=== PATIENT | male | born 1955 | race Caucasian/White ===

== ENCOUNTER 2019-03-05 15:02 | Observation (INO) ==
[2019-03-05 15:35] LABS: BASO# 0.03 X1000 (0.0-0.2); BASO% 0.4 % (0.0-0.8); EOS# 0.05 X1000 (0.0-0.7); EOS% 0.7 % (0.0-10.0); HEMATOCRIT 39.4 % (42.0-52.0); HEMOGLOBIN 13.5 g/dL (14.0-18.0); IMM GRAN# 0.15 X1000 (0.0-0.04); IMM GRAN% 2.2 % (0.0-0.5); LYMPH# 1.24 X1000 (1.2-3.4); LYMPH% 18.5 % (20.5-51.1); MCH 26.7 PG (27-31); MCHC 34.3 g/dL (33-37); MCV 77.9 FL (81-99); MONO# 1.01 X1000 (0.11-0.59); MONO% 15.1 % (1.7-9.3); MPV 9.3 FL (7.4-10.4); NEUT# 4.23 X1000 (1.4-6.5); NEUT% 63.1 % (42.2-75.2); PLT 230 X1000 (130-400); RBC 5.06 XMIL (4.7-6.1); RDW 19.2 % (11.5-14.5); WBC 6.71 X1000 (4.8-10.8)
--- NOTE | 2019-03-05 15:54 | Diag Imaging Result Doc PS360 ---
EXAM: CHEST-PORTABLE HISTORY: PALPITATIONS TECHNIQUE: Chest single view COMPARISON: None. FINDINGS: The lungs are well expanded. The heart is not enlarged. The vessels are not distended. There are no infiltrates. No effusion identified. IMPRESSION: Negative exam. Electronically signed by Navid Madsen 03/05/2019 3:52 PM
[2019-03-05 16:23] LABS: AGAP 13; ALBUMIN 5.2 g/dL (3.5-5.0); ALKALINE PHOSPHATASE 52 U/L (32-122); BUN 14 mg/dL (8-22); CALCIUM 9.9 mg/dL (8.8-10.2); CHLORIDE 100 mmol/L (98-107); COSMO 275; CREATININE 0.6 mg/dL (0.7-1.2); ESTIMATED GFR > 60; GLUCOSE 147 mg/dL (70-104); GOT 34 U/L (10-34); GPT 33 U/L (10-44); INR 1.07; MAGNESIUM 1.9 mg/dL (1.5-2.7); POTASSIUM 3.7 mmol/L (3.5-5.1); PROTIME 14.4 Seconds (11.0-16.0); SODIUM 136 mmol/L (136-145); TCO2 23 mmol/L (25-35); TOTAL PROTEIN 7.6 g/dL (6.3-8.3)
[2019-03-05 16:45] LABS: CK INDEX 2.2 (0.0-2.5); CK-MB 9.95 ng/mL (0.0-5.0)
--- NOTE | 2019-03-05 17:40 | EKG Report ---
Test Performed on : 03/05/2019 3:17:31 PM Test Reason : PALPITATIONS Blood Pressure : / mmHG Vent. Rate : 083 BPM Atrial Rate : 083 BPM P-R Int : 148 ms QRS Dur : 086 ms QT Int : 372 ms P-R-T Axes : 055 015 053 degrees QTc Int : 437 ms Sinus rhythm. with premature supraventricular complexes. Otherwise normal ECG No previous ECGs available Unconfirmed Result
--- NOTE | 2019-03-05 17:42 | PROVIDER DOCUMENTATION ---
This chart was entered by Estelle Riojas Scribe, acting as scribe for Artem Carr MD. HPI-Cardiac General - General Chief Complaint: Palpitations Stated Complaint: IRREG HR Time Seen by Provider: 03/05/19 15:42 Source: patient Allergies/Adverse Reactions: Patient Allergies Allergy/AdvReac Type Severity Reaction Status Date / Time ANTIBIOTICS AdvReac Mild Unknown Uncoded 03/05/19 15:09 - History of Present Illness-Cardiac Nature of Presenting Problem: 63 y/o female presents to ED with worsening palpitations, fatigue, and L arm/fac ial numbness onset 2 weeks ago. Pt reports he had a normal stress test 1.5 years ago. Pt is alert and oriented. Location: reports: central Quality of Pain: reports: none Severity in ED: moderate Onset/Duration: other (2 weeks ago) Timing: still present, getting worse Context/Activities at Onset: reports: none Modifying Factors: improves with: nothing Palpitation Quality: fast/pounding heart beat History of arrythmia: reports: none Recent use of:: reports: no stimulants Nitro Today/Relief: reports: no nitro taken today Aspirin Treatment Today: reports: no aspirin today Prior Chest Pain/Cardiac Workup: reports: stress test Associated Symptoms: reports: fatigue Similar Symptoms Previously?: Yes Recently Seen Here or By Another Healthcare Provider: No Review of Systems - Adult - REVIEW OF SYSTEMS - ADULT Constitutional: reports: fatique. denies: chills, fever Eyes: reports: no symptoms reported Ears, Nose, Mouth & Throat: reports: no symptoms reported Cardiovascular: reports: palpitations. denies: chest pain Respiratory: denies: cough, shortness of breath Gastrointestinal: denies: abdominal pain, diarrhea, nausea, vomiting Genitourinary: reports: no symptoms reported Musculoskeletal: denies: back pain, joint pain Integumentary: reports: no symptoms reported Neurological: reports: numbness (L arm/facial). denies: dizziness/vertigo, seizure Psychiatric: reports: no symptoms reported Endocrine: reports: no symptoms reported Hematologic/Lymphatic: reports: no symptoms reported Allergic/Immunologic: reports: no symptoms reported All Other Systems: Reviewed and Negative Past History - Adult - PAST MEDICAL HISTORY-ADULT Review of Records: reports: Old Records Reviewed, Nursing Assessment Review, Medications Reviewed Major Childhood Illnesses: reports: denies history Cardiovascular: reports: HTN, hyperlipidemia Endocrine/Immune: reports: thyroid disorder - PRIOR SURGERIES/PROCEDURES Surgical/Procedure History: reports: other (sinus) - IMMUNIZATION STATUS Childhood Immunizations: See Nurse Assessment Flu Vaccine: See Nurse Assessment - FAMILY HISTORY Family History: reviewed, not pertinent - SOCIAL HISTORY Smoking: non-smoker Substance Use: none/never Alcohol Use Frequency: never Living Situation: family Physical Exam-General - PHYSICAL EXAM-ADULT Initial Vital Signs Reviewed: Yes - CONSTITUTIONAL General Appearance: appears well, alert, no apparent distress - EYES Eyes: pink conjunctivae - HEAD, EARS, NOSE, MOUTH & THROAT HENMT: normocephalic/atraumatic, moist mucous membranes, normal ENT inspection - NECK Neck: non-tender, full range of motion - RESPIRATORY Respiratory: chest non-tender, lungs clear, normal breath sounds - CARDIOVASCULAR Cardiovascular: normal peripheral pulses, regular rate, rhythm - GASTROINTESTINAL (ABDOMEN) Abdominal Exam: normal bowel sounds, non tender, soft - MUSCULOSKELETAL Back Exam: normal inspection, no CVA tenderness, no vertebral tenderness Extremity: normal range of motion, non-tender, normal gait - SKIN Integumentary: normal color, warm/dry - NEUROLOGIC Neurologic: grossly normal - PSYCHIATRIC Psych/Mental Status: normal mood/affect, normal thought content, normal thought process, oriented x 3 - HEART Score HEART Score: History: Slightly Suspicious HEART Score: ECG: Normal HEART Score: Age: > or = 65 Years HEART Score: Risk Factors for Atherosclerotic Disease: 1 or 2 Risk Factors HEART Score: Troponin: < or = Normal Limit Total HEART Score:: 3 Progress - PLAN OF CARE/RESULTS Progress/Plan/Lab Results: Vital Signs - 8 hr 03/05/19 15:05 03/05/19 15:32 Temperature 98 F Pulse Rate 88 81 Respiratory Rate 19 19 Blood Pressure 159/72 137/87 O2 Sat by Pulse Oximetry 97 97 Laboratory Results - last 24 hr 03/05/19 03/05/19 03/05/19 15:23 15:23 15:23 WBC 6.71 RBC 5.06 Hgb 13.5 L Hct 39.4 L MCV 77.9 L MCH 26.7 L MCHC 34.3 RDW Std Deviation 19.2 H Plt Count 230 MPV 9.3 Immature Gran % (Auto) 2.2 H Neut % (Auto) 63.1 Lymph % (Auto) 18.5 L Baker % (Auto) 15.1 H Eos % (Auto) 0.7 Baso % (Auto) 0.4 Immature Gran # (Auto) 0.15 H Neut # (Auto) 4.23 Lymph # (Auto) 1.24 Baker # (Auto) 1.01 H Eos # (Auto) 0.05 Baso # (Auto) 0.03 PT INR D-Dimer, Quantitative Sodium Potassium Chloride Carbon Dioxide Anion Gap BUN Creatinine Estimated GFR/1.73 m2 BUN/Creatinine Ratio Glucose Calculated Osmolality Calcium Magnesium Total Bilirubin AST ALT Alkaline Phosphatase Creatine Kinase 462 H Creatine Kinase Index 2.2 CK-MB (CK-2) 9.95 H Troponin T < 0.010 Wyr-W-Wzjxzckrlqa Pept Total Protein Albumin Globulin Albumin/Globulin Ratio 03/05/19 03/05/19 03/05/19 15:23 15:23 15:23 WBC RBC Hgb Hct MCV MCH MCHC RDW Std Deviation Plt Count MPV Immature Gran % (Auto) Neut % (Auto) Lymph % (Auto) Baker % (Auto) Eos % (Auto) Baso % (Auto) Immature Gran # (Auto) Neut # (Auto) Lymph # (Auto) Baker # (Auto) Eos # (Auto) Baso # (Auto) PT INR D-Dimer, Quantitative < 0.27 Sodium 136 Potassium 3.7 Chloride 100 Carbon Dioxide 23 L Anion Gap 13 BUN 14 Creatinine 0.6 L Estimated GFR/1.73 m2 > 60 BUN/Creatinine Ratio 23 Glucose 147 H Calculated Osmolality 275 Calcium 9.9 Magnesium 1.9 Total Bilirubin 0.60 AST 34 ALT 33 Alkaline Phosphatase 52 Creatine Kinase Creatine Kinase Index CK-MB (CK-2) Troponin T Mmt-B-Ninphnxvdvh Pept 31 Total Protein 7.6 Albumin 5.2 H Globulin 2.0 Albumin/Globulin Ratio 2.0 03/05/19 15:23 WBC RBC Hgb Hct MCV MCH MCHC RDW Std Deviation Plt Count MPV Immature Gran % (Auto) Neut % (Auto) Lymph % (Auto) Baker % (Auto) Eos % (Auto) Baso % (Auto) Immature Gran # (Auto) Neut # (Auto) Lymph # (Auto) Baker # (Auto) Eos # (Auto) Baso # (Auto) PT 14.4 INR 1.07 D-Dimer, Quantitative Sodium Potassium Chloride Carbon Dioxide Anion Gap BUN Creatinine Estimated GFR/1.73 m2 BUN/Creatinine Ratio Glucose Calculated Osmolality Calcium Magnesium Total Bilirubin AST ALT Alkaline Phosphatase Creatine Kinase Creatine Kinase Index CK-MB (CK-2) Troponin T Fkl-R-Hoswavdydrp Pept Total Protein Albumin Globulin Albumin/Globulin Ratio Orders Category Date Time Status Nursing- Obtain EKG ONCE Care 03/05/19 15:13 Active CHEST-PORTABLE [RAD] Stat Exams 03/05/19 15:13 Completed CBC WITH DIFF [HEME] Stat Lab 03/05/19 15:23 Completed CK PROFILE [SP CHEM] Stat Lab 03/05/19 15:23 Completed COMPREHENSIVE METABOLIC PANEL [CHEM] Stat Lab 03/05/19 15:23 Completed D-DIMER [COAG] Stat Lab 03/05/19 15:23 Completed FREE T4 Stat Lab 03/05/19 15:23 Received MAGNESIUM [CHEM] Stat Lab 03/05/19 15:23 Completed PRO B-NATRIURETIC PEPTIDE Stat Lab 03/05/19 15:23 Completed PROTIME WITH INR [COAG] Stat Lab 03/05/19 15:23 Completed TROPONIN T Stat Lab 03/05/19 15:23 Completed TSH Stat Lab 03/05/19 15:23 Received EKG [EKG] Stat Ther 03/05/19 15:13 Draft Result Diagrams: 03/05/19 15:23 03/05/19 15:23 - EKG 1 Time of EKG reading by physician:: 15:17 EKG Read and Signed by:: Artem Carr EKG Interpretation (*Must complete 3 of following elements*): Normal Rate: 83 Rhythm: Sinus w/ premature supraventricular complexes [place]: normal QRS: normal [place] Interval: normal ST Wave: normal - XRAY 1 XRAY Study: Chest Impression: Normal ([facility] [address], [address], [place] [address] Department of Imaging Patient: NICK FALL Date: 03/05/19#: [id number] : 1955DM Status: REG ERAt#: [id number] Age/Sex: 63/MRoom/Bed: Loc: P.ED Ordering Physician: Artem Carr MD Family Physician: Maddie Grier MD Reason for Procedure: PALPITATIONS Signed EXAM: CHEST-PORTABLE HISTORY: PALPITATIONS TECHNIQUE: Chest single view COMPARISON: None. FINDINGS: The lungs are well expanded. The heart is not enlarged. The vessels are not distended. There are no infiltrates. No effusion identified. IMPRESSION: Negative exam. Electronically signed by Navid Madsen 03/05/2019 3:52 PM 03/05/19 1552 Interpreting Physician: Navid Madsen MD Dictated Date/Time: 03/05/19 1551 cc: Artem Carr MD; Maddie Grier MD) - CONSULTS/PCP/HOSPITALIST Notification #1 *Consult/PCP/Hospitalist*: Dr. Mars Time Discussed: 17:37 Reason/Comments: Palpitations; numbness Consult Disposition: Will see in ED, Admit Departure - Departure Date of Disposition Decision: 03/05/19 Time of Disposition Decision: 17:38 DIAGNOSIS: Atypical chest pain, Palpitations Disposition: ADMITTED INPATIENT 09 Certified Medical Emergency: Emergent Condition: Stable Referrals and Follow-Ups: Maddie Grier MD [Primary Care Provider] - - Critical Care Note This patient required my direct & personal management of CC.: No Attestation - Physician/ CHRISSY Attestation Patient care was provided by Advanced Practice Provider:: No The physician spent face to face time with patient:: Yes Advanced Practice Provider documentation review:: Supervising physician onsite and consulted in the evaluation and care of this patient. The physician did have a face to face encounter with the patient. This chart was documented by the indicated scribe, (Estelle Riojas, [employer]) and accurately reflects the services I performed and decisions made by me, Artem Espino MD, as attested by the provider's signature.
[2019-03-05 17:43] LABS: FREE T4 1.16 ng/dL (0.93-1.70); TSH 2.69 uIUmL (0.27-4.20)
--- NOTE | 2019-03-05 18:58 | Diag Imaging Result Doc PS360 ---
EXAM: CT HEAD W/O CONTRAST 03/05/2019 HISTORY: L arm/face numbness TECHNIQUE: This exam was performed using automated exposure control, adjustment of mA or kV according to patient size, and/or use of iterative reconstruction technique. COMMENT: There are calcifications in the globus pallidus bilaterally. There is no evidence of mass effect, bleed, or abnormal extra-axial fluid collection. The calvarium is intact. The visualized paranasal sinuses are clear. IMPRESSION: No evidence of acute intracranial disease. Electronically signed by Cortez Padron 03/05/2019 6:55 PM
--- NOTE | 2019-03-05 19:37 | HISTORY AND PHYSICAL ---
CHIEF COMPLAINT: Palpitations and left arm and face numbness. HISTORY OF PRESENT ILLNESS: This is a 63-year-old male who presented to the emergency room complaining with palpitations, fatigue, left arm and facial numbness that had been present for 2 weeks. During this time, symptoms have waxed and waned, although prior to coming to the emergency room today they increased. He became concerned, prompting his evaluation. He does report having a stress test a year and a half ago. He stated that it was normal. He denies any chest pain, any syncope or dizziness with these symptoms. No fevers or chills. No shortness of breath. PAST MEDICAL HISTORY: Hypertension, hyperlipidemia. PAST SURGICAL HISTORY: Sinus surgery. SOCIAL HISTORY: Denies alcohol, tobacco or illicit drug use. ALLERGIES: Antibiotics, with unknown reaction. HOME MEDICATIONS: A list will be obtained by the nursing staff and once verified, will review and restart as appropriate. REVIEW OF SYSTEMS: Discussed with the patient with pertinent positives stated in the HPI. He denied any syncope or dizziness, any chest pain, any shortness of breath, cough, fever, chills, any night sweats, PND, orthopnea, any nausea, vomiting, diarrhea, constipation, any black or bloody vomitus or stools, any hematuria, dysuria, frequency, urgency. No change in vision, speech, hearing, no difficulty swallowing. PHYSICAL EXAMINATION: GENERAL: This is a 63-year-old gentleman who is sitting up in the stretcher in the emergency room in no distress. VITAL SIGNS: Blood pressure is 137/87, with a heart rate of 81, respirations are 19, temperature is 98, with room air sats 97%. EYES: Pupils are equal, round, react to light. EOMs are intact. Sclerae anicteric. HEENT: Head is normocephalic, atraumatic. Mucous membranes are moist. NECK: Supple, with trachea midline. CARDIOVASCULAR: Regular rate and rhythm. S1 and S2 appreciated. PULMONARY: Breath sounds are clear, with no increased work of breathing noted. Chest rises and falls symmetric with respiration. Chest wall is nontender to palpation. GASTROINTESTINAL: Abdomen is soft, nontender, nondistended. Bowel sounds in all 4 quadrants. GENITOURINARY: He has no CVA or suprapubic tenderness. NEUROLOGIC: He is alert and oriented x 3. Forehead is spared. He has no tongue or uvula deviation. No facial drooping. Shoulder shrug is equal. Strength is 5/5 to all 4 extremities. Lacemaker are equal. He has no plantar drift. LABORATORY: WBC is 6.7, with hemoglobin 13.5, hematocrit 39.4 and platelets of 230,000. Sodium 136, potassium 3.7, BUN 14, creatinine 0.7, with glucose of 147. Troponin is negative. TSH is 2.69. Chest x-ray reveals a negative exam. Lungs are well expanded. Heart is not enlarged. Vessels are not distended. There are no infiltrates, no effusions seen. EKG: Sinus rhythm at a rate of 83. ASSESSMENT AND PLAN: 1. Palpitations. 2. Left arm and face weakness. 3. Hypertension. 4. Hyperlipidemia. PLAN: The patient will be admitted to the Medical-Surgical floor and placed on telemetry. We will do neuro checks q.6 hours. We will obtain an echocardiogram and a carotid ultrasound, as well as a CT of the head. We will identify his home medications and continue these as appropriate. Repeat a CBC, CMP as well as EKG in the morning. We will trend troponins and cardiac enzymes. Further treatments pending hospital course. Dictated by JULIET Rico for Bill Mars MD cc: JULIET Rico MD
[2019-03-05 22:44] LABS: AGAP 12; CHLORIDE 99 mmol/L (98-107); GLUCOSE 164 mg/dL (70-104); POTASSIUM 3.4 mmol/L (3.5-5.1); SODIUM 137 mmol/L (136-145); TCO2 27 mmol/L (25-35)
[2019-03-05 22:45] LABS: ALBUMIN 5.2 g/dL (3.5-5.0); ALKALINE PHOSPHATASE 53 U/L (32-122); BUN 13 mg/dL (8-22); CALCIUM 10.3 mg/dL (8.8-10.2); COSMO 278; CREATININE 0.7 mg/dL (0.7-1.2); ESTIMATED GFR > 60; GOT 32 U/L (10-34); GPT 33 U/L (10-44); TOTAL PROTEIN 8.1 g/dL (6.3-8.3)
[2019-03-05 23:23] LABS: CK INDEX 2.1 (0.0-2.5); CK-MB 8.12 ng/mL (0.0-5.0)
[2019-03-06 04:22] LABS: BASO# 0.07 X1000 (0.0-0.2); BASO% 1.2 % (0.0-0.8); EOS# 0.06 X1000 (0.0-0.7); HEMATOCRIT 41.7 % (42.0-52.0); HEMOGLOBIN 14.1 g/dL (14.0-18.0); IMM GRAN# 0.12 X1000 (0.0-0.04); LYMPH# 1.98 X1000 (1.2-3.4); LYMPH% 33.3 % (20.5-51.1); MCH 26.6 PG (27-31); MCHC 33.8 g/dL (33-37); MCV 78.5 FL (81-99); MONO# 1.46 X1000 (0.11-0.59); MONO% 24.5 % (1.7-9.3); MPV 8.9 FL (7.4-10.4); NEUT# 2.26 X1000 (1.4-6.5); PLT 236 X1000 (130-400); RBC 5.31 XMIL (4.7-6.1); RDW 19.3 % (11.5-14.5); WBC 5.95 X1000 (4.8-10.8)
[2019-03-06 04:46] LABS: LYMPHS 38 % (21-51); MONO 17 % (1-9); SEGS 42 % (42-75)
[2019-03-06 04:47] LABS: ANISOCYTOSIS 1+; HYPOCHROM OCCASIONAL; MICROCYTOSIS OCCASIONAL; POIKILOCYTOSIS 1+
[2019-03-06 04:48] LABS: LARGE PLATELETS OCCASIONAL; POLYCHROM OCCASIONAL; TARGET CELLS OCCASIONAL
[2019-03-06 04:49] LABS: OVALOCYTES OCCASIONAL; STOMATOCYTES 1+
[2019-03-06 05:33] LABS: CK INDEX 2.2 (0.0-2.5); CK-MB 7.54 ng/mL (0.0-5.0)
--- NOTE | 2019-03-06 05:59 | EKG Report ---
Test Performed on : 03/06/2019 05:49:15 AM Test Reason : palpitations Blood Pressure : / mmHG Vent. Rate : 061 BPM Atrial Rate : 061 BPM P-R Int : 160 ms QRS Dur : 086 ms QT Int : 418 ms P-R-T Axes : 057 026 064 degrees QTc Int : 420 ms Normal sinus rhythm. Normal ECG When compared with ECG of 05-MAR-2019 15:17, (Unconfirmed) premature supraventricular complexes. are no longer present Unconfirmed Result
[2019-03-06] MEDS ORDERED: PRILOSEC PO SCH (07:00)
--- NOTE | 2019-03-06 07:24 | Extremity Venous Study ---
EXAM: Carotid Ultrasound HISTORY: left arm/face numb TECHNIQUE: Carotid Doppler ultrasound COMPARISON: None. FINDINGS: Right: Normal flow in the subclavian artery. No occlusion or stenosis in the common carotid artery. There is a small amount of plaque within the bulb. The peak systolic velocity in the internal carotid artery is 105 cm/s. The ICA/CCA ratio is 1.21. Antegrade vertebral flow. Left: Normal flow in the subclavian artery. No occlusion or stenosis in the common carotid artery. There is a small amount of plaque within the bulb. The peak systolic velocity within the internal carotid arteries 106 cm/s. The ICA/CCA ratio is 1.04. Antegrade vertebral flow. IMPRESSION: Mild stenosis within each proximal internal carotid artery of less than 40%. Electronically signed by Navid Madsen 03/06/2019 7:21 AM
[2019-03-06 13:46] VITALS: BP 131/73
--- NOTE | 2019-03-06 20:13 | ECHO REPORT ---
ORDER DATE: 03/06/2019 MEASUREMENTS: Septal thickness 1.2, left ventricular internal diameter end- diastole 4.1, posterior wall thickness 1.1, left ventricular internal diameter end-systole 2.5. Left atrium 3.8, aortic root 3.8. SUMMARY: 1. Adequate quality study. 2. Aortic valve is trileaflet and opens normally on 2-dimensional images. Peak gradient across aortic valve is less than 10 mmHg. There is mild aortic regurgitation. The aortic root is borderline enlarged. The proximal ascending aorta is mildly enlarged. Mitral, tricuspid and pulmonic valves are without evidence of structural abnormality with trace mitral regurgitation, mild tricuspid regurgitation, and mild pulmonic insufficiency. Estimated systolic PA pressure by Doppler is 25 mmHg. 3. Normal left ventricular chamber size with mild concentric left hypertrophy is demonstrated. Estimated left ejection fraction appears to be at least 70%. No regional wall motion abnormality is evident. Doppler suggests grade 1 left ventricular diastolic dysfunction. Left atrium, right atrium, and right ventricle are normal size with normal right ventricular systolic function. 4. No pericardial effusion 5. Appearance of inferior vena cava suggests normal central venous pressure. CONCLUSIONS: 1. Mild aortic regurgitation. 2. Borderline aortic root enlargement with mild dilatation of proximal ascending aorta. 3. Mild tricuspid regurgitation with normal systolic PA pressure by Doppler. 4. Mild concentric left hypertrophy with estimated left ejection fraction at least 70%. 5. Grade 1 left ventricular diastolic dysfunction suggested. cc: MD Jenny Iraheta CRNP MTDD
--- NOTE | 2019-03-09 04:58 | HISTORY AND PHYSICAL ---
ADDENDUM: Patient seen and examined by myself while in the ER on the . This is an addendum as that note has somehow been lost. We will admit patient the hospital, follow his numbness and tingling, evaluate for stroke and we will follow. cc: Bill Mars MD
--- NOTE | 2019-03-09 07:39 | DISCHARGE SUMMARY ---
ADMISSION DATE: 03/05/2019 DISCHARGE DATE: 03/06/2019 DISCHARGE DIAGNOSES: 1. Palpitations, resolved. 2. Left arm and left-sided facial numbness and weakness, appears resolved. 3. Hypertension. 4. Hyperlipidemia. CONSULTATIONS: None. PROCEDURES: None. BRIEF HOSPITAL COURSE: The patient is a 63-year-old male who presented to the hospital with palpitations and left-sided arm and facial numbness and tingling. Thankfully, all of this has resolved. His blood pressure is improved and, therefore, he will be discharged home. DISPOSITION: The patient will be discharged home. Echocardiogram and carotid ultrasounds both have been done. The final results are pending. The patient will follow up outpatient with Dr. Grier in the next 1 or 2 weeks to follow up on his carotid and echocardiogram results. I discussed for him to follow up sooner should symptoms worsen or return. No changes were made on his home medications, diet, or activity. cc: Bill Mars MD
== END 2019-03-06 17:25 | disposition home or self-care (01) ==
LOC: P.ED 15:02 → P.MEDSURG 15:03 → INTOOBSV 15:03
PROVIDERS: ATTEND Family Medicine
CPT/HCPCS: 70450; 71010; 71045; 80053; 82550; 82553; 83735; 83880; 84439; 84443; 84484; 85025; 85379; 85610; 93005; 93306; 93880; 99285; A9270